=== PATIENT | female | born 1985 | race African-American/Black ===

== ENCOUNTER 2020-11-29 19:30 | Emergency (ER) | payer MEDICAID ==
[~2020-11-29] VITALS: Ht 172.7 cm; Wt 65.9 kg
[2020-11-29 19:39] VITALS: BP 118/68
== END 2020-11-29 21:25 | disposition left against medical advice (07) ==
LOC: EMS 19:40
DX: R51.9 Headache, unspecified (principal)

== ENCOUNTER 2020-11-30 21:02 | Emergency (ER) | payer MEDICAID ==
[~2020-11-30] VITALS: Ht 174 cm; Wt 59.1 kg
[2020-11-30] MEDS ORDERED: DiphenhydrAMINE HCL 50 MG/ML VIAL IVP ONE (21:45)
[2020-11-30] MEDS ORDERED: MethylPREDNISolone SOD SUCC 125 MG/2 ML VIAL IVP ONE (21:45)
[2020-11-30] MEDS ORDERED: TraMADol HCL 50 MG TABLET PO ONE (22:00)
[2020-11-30] MEDS ORDERED: SODIUM CHLORIDE 0.9% 1,000 ML IV ONE (22:00)
[2020-11-30 22:03] LABS: BASOPHILS % (AUTO) 1.2 % (0.0-2.0); EOSINOPHILS % (AUTO) 1.5 % (1.0-6.0); HEMATOCRIT 34.7 % (36-46); HEMOGLOBIN 11.1 g/dL (12.0-16.0); LYMPHOCYTES # (AUTO) 1.1 K/uL (1.0-4.8); LYMPHOCYTES % (AUTO) 18.9 % (22.0-44.0); MEAN CORPUSCULAR HEMOGLOBIN 23.2 pg (26.0-34.0); MEAN CORPUSCULAR VOLUME 73 fL (80-100); MONOCYTES # (AUTO) 0.7 K/uL (0.1-1.0); MONOCYTES % (AUTO) 12.3 % (2.0-9.0); NEUTROPHILS # (AUTO) 3.7 K/uL (1.8-7.7); NEUTROPHILS % (AUTO) 66.1 % (40.0-70.0); PLATELET COUNT (AUTO) 358 K/uL (150-450); RED BLOOD CELL COUNT(AUTO) 4.78 MIL/uL (4.00-5.20); RED CELL DISTRIBUTION WIDTH 17.3 % (11.5-14.5)
[2020-11-30 22:42] LABS: ANION GAP 6 mmol/L (8-16); CALCIUM, TOTAL 8.8 mg/dL (8.8-10.5); CARBON DIOXIDE 30 mmol/L (22-29); CHLORIDE 101 mmol/L (98-107); CREATININE 0.87 mg/dL (0.60-1.30); GLOMERULAR FILTR. RATE CALC > 60 mL/min (>60); GLUCOSE,RANDOM 103 mg/dL (70-110); POTASSIUM 4.5 mmol/L (3.5-5.1); SODIUM SERUM 137 mmol/L (136-145); UREA NITROGEN, BLOOD 9 mg/dL (7-18)
[2020-11-30 22:53] LABS: ALANINE AMINOTRANSFERASE 15 U/L (12-78); ALKALINE PHOSPHATASE 145 U/L (46-116); ASPARTATE AMINOTRANSFERASE 16 U/L (15-37); BILIRUBIN,TOTAL 0.3 mg/dL (0.1-1.0); HCG,QUANTITATIVE < 1 mIU/mL (0-6); TOTAL PROTEIN, SERUM 7.8 g/dL (6.4-8.2)
[2020-12-01 01:30] VITALS: BP 116/74
== END 2020-12-01 02:37 | disposition home or self-care (01) ==
LOC: EMS 21:02
DX: L23.9 Allergic contact dermatitis, unspecified cause (principal); R51.9 Headache, unspecified; F17.210 Nicotine dependence, cigarettes, uncomplicated; F12.90 Cannabis use, unspecified, uncomplicated; Z88.6 Allergy status to analgesic agent
CPT/HCPCS: 36415; 70450; 80053; 84702; 85025; 96361; 96374; 96375; 99284; J1200; J2930; J7030

== ENCOUNTER 2022-04-05 02:56 | Emergency (ER) | payer MEDICAID ==
[~2022-04-05] VITALS: Ht 172.7 cm; Wt 58.2 kg
[2022-04-05 03:13] VITALS: BP 119/77
== END 2022-04-05 05:07 | disposition left against medical advice (07) ==
LOC: EMS 02:56
DX: Z53.21 Procedure and treatment not carried out due to patient leaving prior to being seen by health care provider (principal)

== ENCOUNTER 2023-12-23 20:41 | Emergency (ER) | payer MEDICAID ==
[~2023-12-23] VITALS: Ht 172.7 cm; Wt 56.8 kg
[2023-12-23 20:50] VITALS: TEMP 98
[2023-12-23] MEDS: PENICILLIN V POTASSIUM 500 MG TABLET PO ONE (23:27)
[2023-12-23] MEDS: OxyCODONE HCL/ACETAMINOPHEN 5-325 MG TABLET PO ONE (23:28)
[2023-12-23] MEDS ORDERED: ACET-2895 PO (23:38)
[2023-12-23] MEDS ORDERED: PENI500T2 PO (23:38)
[2023-12-23 23:43] VITALS: BP 127/65; PULSE 98; RESP 20
== END 2023-12-23 23:51 | disposition home or self-care (01) ==
LOC: EMS 20:41
DX: K02.9 Dental caries, unspecified (principal); M79.671 Pain in right foot; M79.672 Pain in left foot; F17.210 Nicotine dependence, cigarettes, uncomplicated; Z88.6 Allergy status to analgesic agent
CPT/HCPCS: 99283

== ENCOUNTER 2024-07-24 18:35 | Emergency (ER) | payer MEDICAID ==
[~2024-07-24] VITALS: Ht 172.7 cm; Wt 57.0 kg
[~2024-07-24 18:35] MED LIST: ACET-2895 PO; PENI500T2 PO
[2024-07-24 18:49] VITALS: BP 126/78; PULSE 102; RESP 18; TEMP 98.2; O2SAT 99
== END 2024-07-24 22:06 | disposition left against medical advice (07) ==
LOC: EMS 18:35
DX: M25.572 Pain in left ankle and joints of left foot (principal); M25.571 Pain in right ankle and joints of right foot; Z53.21 Procedure and treatment not carried out due to patient leaving prior to being seen by health care provider